=== PATIENT | male | born 1990 | race Caucasian/White ===

== ENCOUNTER 2017-11-28 01:10 | Emergency (ER) | payer SELFPAY, OTHER ==
[2017-11-28] MEDS: DEXAMETHASONE 10 MG/ML 1 ML INJ IM (03:55)
[2017-11-28] MEDS: IPRATROPIUM (NEB) 0.5 MG/2.5 ML AMP INH (03:58)
[2017-11-28] MEDS: ALBUTEROL 0.5% (NEB) 2.5 MG/0.5 ML AMP INH (04:00)
== END 2017-11-28 05:31 | disposition home or self-care (01) ==
LOC: FTE 05:31
DX: R06.2 Wheezing (principal); Z87.891 Personal history of nicotine dependence
CPT/HCPCS: 94644; 96372; 99284-25